=== PATIENT | female | born 1945 | race Caucasian/White ===

== ENCOUNTER 2017-01-25 12:47 | Outpatient (CLI) | payer MEDICARE ==
--- NOTE | 2017-01-29 13:49 | Mammography Report ---
DIGITAL SCREENING MAMMOGRAM: 01/25/2017 CLINICAL INDICATION: A 71-year-old, for screening. COMPARISON: No previous examinations are available for comparison. If records in your office indicate where the patient's previous mammograms were performed, we would be happy to try to obtain them for direct comparison. Otherwise, this will serve as a new baseline. TECHNIQUE: Routine CC and MLO projections were obtained of the breasts. FINDINGS: The breasts demonstrate heterogeneously dense fibroglandular parenchyma bilaterally. Coars e and punctate, typically benign calcifications are present. No suspicious masses, clustered microcal cifications, or regions of architectural distortion are identified. IMPRESSION: BENIGN FINDINGS. RECOMMENDATION: ROUTINE ANNUAL SCREENING UNLESS OTHERWISE CLINICALLY INDICATED. BIRADS CATEGORY 2-BENIGN FINDINGS. STANDARD QUALIFYING STATEMENTS 1. This examination was reviewed with the aid of Computer-Aided Detection (CAD). 2. A negative or benign imaging report should not delay biopsy if clinically suspicious findings are present. Consider surgical consultation if warranted. More than 5% of cancers are not identified by i maging. 3. Dense breasts may obscure an underlying neoplasm. JOB #: [id number] EXT JOB #:[id number]
== END 2017-01-25 12:48 | disposition home or self-care (01) ==
LOC: DI 12:47
PROVIDERS: ATTEND Internal Medicine
DX: Z12.31 Encounter for screening mammogram for malignant neoplasm of breast (principal)
CPT/HCPCS: 77067

== ENCOUNTER 2019-02-21 10:18 | Outpatient (CLI) | payer MEDICARE | END 2019-02-21 10:19 | disposition home or self-care (01) | LOC: DI 10:18 | PROVIDERS: ATTEND Internal Medicine | DX: R01.1 Cardiac murmur, unspecified (principal); I27.20 Pulmonary hypertension, unspecified | CPT/HCPCS: 93306 ==

== ENCOUNTER 2020-07-15 15:39 | Emergency (ER) | payer MEDICARE ==
[2020-07-15 15:45] VITALS: BP 178/86
[2020-07-15] MEDS ORDERED: TETANUS/DIPHTHERIA/PERTUSSIS 0.5 ML SYRINGE IM ONE (15:45)
--- NOTE | 2020-07-15 16:08 | ED Physician Documentation ---
History of Present Illness - Stated complaint Stated Complaint: RT THUMB LAC - Chief complaint Chief Complaint: Laceration - History obtained from History obtained from: Patient - History of Present Illness Timing: Today Pain level max: 3 Pain level now: 2 - Additonal information Additional information: 75 year old female with a right thumb laceration 2/2 piece of pottery today. Continues to bleed. Needs Tdap. Patient is right handed. Review of Systems Constitutional: denies: Fever, Chills GI: denies: Vomiting Skin: denies: Rash Musculoskeletal: denies: Neck pain, Back pain Neurologic: denies: Headache PD PAST MEDICAL HISTORY - Past Medical History Past Medical History: No - Allergies Allergies/Adverse Reactions: Allergies Allergy/AdvReac Type Severity Reaction Status Date / Time No Known Drug Allergies Allergy Verified 07/15/20 15:41 PD ED PE NORMAL - Vitals Vital signs reviewed: Yes - General General: Alert and oriented X 3, No acute distress - HEENT HEENT: Moist mucous membranes - Neck Neck: Supple, no meningeal sign - Derm Derm: Warm and dry - Neuro Neuro: Alert and oriented X 3 - Psych Psych: Normal mood, Normal affect PD ED PE EXPANDED - Extremities VANESSA UE/Hands Visual: 1 - laceration (R thumb - 1.5cm laceration, distal phalanx. linear. NVI.) Results - Vitals Vitals: Vital Signs - 24 hr 07/15/20 15:42 Temperature 36.5 C Heart Rate 79 Respiratory 16 Rate Blood Pressure 178/86 H O2 Saturation 99 Oxygen O2 Source Room air Procedures - Laceration (location) Right thumb Length in cm: 1.5 Wound type: Linear, Into subcut fat, Clean Neurovascular status: Sensory intact, Motor intact, Vascular intact Tendon involvement: Tendon intact Wound preparation: Irrigated copiously NS Skin layer closure: Dermabond (T ring closure system) Other: Patient tolerated well, No complications, Neurovascular intact, Tetanus booster given PD MEDICAL DECISION MAKING - ED course Complexity details: reviewed results, re-evaluated patient, considered differential, d/w patient ED course: This was closed with the t ring closure system. Warnings of infection and instructions on wound care given at bedside. Also counseled on how to minimize scarring. Patient counseled regarding signs and symptoms for which I believe and urgent re-evaluation would be necessary. Patient with good understanding of and agreement to plan and is comfortable going home at this time This document was made in part using voice recognition software. While efforts are made to proofread this document, sound alike and grammatical errors may occur. Tdap given Departure - Departure Disposition: 01 Home, Self Care Clinical Impression: Thumb laceration Qualifiers: Encounter type: initial encounter Damage to nail status: without damage Foreign body presence: without foreign body Laterality: right Qualified Code(s): S61.011A - Laceration without foreign body of right thumb without damage to nail, initial encounter Condition: Good Instructions: ED Laceration Hand Follow-Up: Abbie Leija MD [Primary Care Provider] - Within 1 week Comments: Follow-up with your doctor in about a week for wound check. Return if you worsen. Keep the wound clean. The closure system should fall off in about a week. Discharge Date/Time: 07/15/20 16:30
--- OUTSIDE RECORDS SUMMARY | 2020-07-21 01:18 | EXTERNAL MEDICAL SUMMARY RPT | Continuity of Care Document ---
:1945 Demographics Phone Unavailable Preferred Language Unknown Marital Status Unknown Samaritan Affiliation Unknown Race Unknown Ethnic Group Unknown Author Organization [facility] Address [address] [place] [address] Phone Social History date description facility [phone]
== END 2020-07-15 16:30 | disposition home or self-care (01) ==
LOC: ED 15:39
DX: S61.011A Laceration without foreign body of right thumb without damage to nail, initial encounter (principal); W26.8XXA Contact with other sharp object(s), not elsewhere classified, initial encounter; Z23 Encounter for immunization
CPT/HCPCS: 12001; 90471; 99282; 99283

== ENCOUNTER 2020-08-19 13:03 | Outpatient (CLI) | payer MEDICARE ==
--- NOTE | 2020-08-20 09:34 | Mammography Report ---
BILATERAL DIGITAL SCREENING MAMMOGRAM 3D/2D: 08/19/2020 CLINICAL: Routine screening. Comparison is made to exam dated: 01/25/2017 mammogram - [facility]. The tissue o f both breasts is heterogeneously dense. This may lower the sensitivity of mammography. No significant masses, calcifications, or other findings are seen in either breast. There has been no significant interval change. IMPRESSION: NEGATIVE There is no mammographic evidence of malignancy. A 1 year screening mammogram is recommended. This exam was interpreted at Station ID: [id number]. NOTE: For mammograms, a report in lay terms will be sent to the patient. Approximately 15% of breast malignancies will not be visualized mammographically. In the management of a palpable breast mass, a negative mammogram must not discourage biopsy of a clinically suspicious lesion. Electronically Signed By: Carrillo Graham M.D. ddp/penrad:08/19/2020 14:26:16 ACR BI-RADS Category 1: Negative 3341F PARENCHYMAL PATTERN: (D) - The breast(s) demonstrate(s) heterogeneously dense fibroglandular ben gusman. BI-RADS CATEGORY: (1) - 1 RECOMMENDATION: (ANNUAL) - Recommend routine annual screening mammography. [id number] 1 year screening LATERALITY: (B)
== END 2020-08-19 13:04 | disposition home or self-care (01) ==
LOC: DI 13:03
PROVIDERS: ATTEND Internal Medicine
DX: Z12.31 Encounter for screening mammogram for malignant neoplasm of breast (principal)

== ENCOUNTER 2021-04-19 08:00 | Outpatient (CLI) | payer MEDICARE ==
[2021-04-19 17:38] LABS: BASOPHILS # (AUTO) 0.1 10^3/uL (0.0-0.1); BASOPHILS % (AUTO) 0.7 %; EOSINOPHILS # (AUTO) 0.1 10^3/uL (0.0-0.7); EOSINOPHILS % (AUTO) 1.3 %; HCT - HEMATOCRIT 37.9 % (37.0-47.0); HGB - HEMOGLOBIN 12.1 g/dL (12.0-16.0); LYMPHOCYTES # (AUTO) 2.5 10^3/uL (1.5-3.5); LYMPHOCYTES % (AUTO) 30.4 %; MEAN CORPUSCULAR HEMOGLOBIN 30.7 pg (27.0-31.0); MEAN CORPUSCULAR HGB CONC 31.9 g/dL (32.0-36.0); MEAN CORPUSCULAR VOLUME 96.2 fL (81.0-99.0); MEAN PLATELET VOLUME 10.8 fL (7.9-10.8); MONOCYTES # (AUTO) 0.5 10^3/uL (0.0-1.0); MONOCYTES % (AUTO) 6.5 %; NEUTROPHILS % (AUTO) 60.7 %; PLT - PLATELET COUNT 262 10^3/uL (130-450); RED BLOOD COUNT 3.94 10^6/uL (4.20-5.40); RED CELL DISTRIBUTION WIDTH 13.5 % (12.0-15.0); WHITE BLOOD COUNT 8.3 x10^3/uL (4.8-10.8)
[2021-04-19 17:44] LABS: CREATININE 0.9 mg/dL (0.4-1.0); POTASSIUM 3.8 mmol/L (3.5-5.0)
== END 2021-04-19 23:59 ==
LOC: LAB.R 08:00
PROVIDERS: ATTEND Internal Medicine
DX: Z01.812 Encounter for preprocedural laboratory examination (principal); H40.9 Unspecified glaucoma; E78.5 Hyperlipidemia, unspecified; I10 Essential (primary) hypertension
CPT/HCPCS: 80048; 85025

== ENCOUNTER 2021-04-27 08:00 | Outpatient (CLI) | payer MEDICARE | END 2021-04-27 23:59 | LOC: LAB.R 08:00 | PROVIDERS: ATTEND Internal Medicine | DX: Z01.812 Encounter for preprocedural laboratory examination (principal); Z20.822 Contact with and (suspected) exposure to COVID-19 ==

== ENCOUNTER 2021-09-26 16:15 | Outpatient (CLI) | payer MEDICARE ==
[2021-09-26 16:52] LABS: ALBUMIN/GLOBULIN RATIO 1.1 (1.0-2.2); ALKALINE PHOSPHATASE 51 IU/L (42-121); ALT ALANINE AMINOTRANSFERASE 16 IU/L (10-60); AST ASPARTATE AMINOTRANSFERASE 24 IU/L (10-42); BILIRUBIN,TOTAL 0.5 mg/dL (0.2-1.0); BUN - BLOOD UREA NITROGEN 27 mg/dL (6-20); CALCIUM 9.9 mg/dL (8.5-10.3); CARBON DIOXIDE - CO2 28 mmol/L (21-32); CHLORIDE 100 mmol/L (101-111); CHOL/HDL RATIO 4.3 (<4.4); CHOLESTEROL 310 mg/dL; CREATININE 0.9 mg/dL (0.4-1.0); GFR - MDRD 61 (>89); GLUCOSE 87 mg/dL (70-100); HDL CHOLESTEROL 72 mg/dL; LDL CHOLESTEROL,CALCULATED 213 mg/dL; POTASSIUM 3.5 mmol/L (3.5-5.0); SODIUM 136 mmol/L (135-145); TOTAL PROTEIN 7.8 g/dL (6.7-8.2); TRIGLYCERIDES 127 mg/dL; VLDL CHOLESTEROL 25 mg/dL
[2021-09-26 17:01] LABS: THYROID STIMULATING HORMONE 1.69 uIU/mL (0.34-5.60)
== END 2021-09-26 16:16 | disposition home or self-care (01) ==
LOC: LAB 16:15
PROVIDERS: ATTEND Internal Medicine
DX: Z00.00 Encounter for general adult medical examination without abnormal findings (principal); M54.9 Dorsalgia, unspecified; H40.9 Unspecified glaucoma; E78.5 Hyperlipidemia, unspecified; I10 Essential (primary) hypertension; M79.605 Pain in left leg; M79.604 Pain in right leg; C80.1 Malignant (primary) neoplasm, unspecified
CPT/HCPCS: 36415; 80053; 80061; 82306; 82607; 83721; 84443; 85025

== ENCOUNTER 2021-12-22 13:49 | Outpatient (CLI) | payer MEDICARE ==
--- NOTE | 2021-12-22 15:48 | MRI Report ---
PROCEDURE: Lumbar Spine W/O INDICATIONS: GROIN PAIN, LEFT LEG PAIN TECHNIQUE: Noncontrast sagittal T1 spin echo and T2 fast echo, sagittal STIR, axial T1 and T2 fast spin echo thr ough the lumbar spine. In cases with scoliosis, additional coronal T2 fast spin echo may be performe d. COMPARISON: None. FINDINGS: Image quality: Excellent. Alignment and Curvature: There is grade I L3 on L4 and L4 on L5 anterolisthesis. Bone Marrow: Marrow is of normal overall signal. No acute vertebral body compression fractures. Spinal Cord: Conus medullaris terminates at the T12/L1 level. Visualized cord demonstrates normal s ignal and size. Paraspinous Soft Tissues: No paravertebral masses. T12-L1: Moderate disc desiccation and height loss. No canal stenosis. No neural foraminal stenosis. L1-L2: Mild disc desiccation and height loss. Broad based disc bulge. Moderate facet and ligamentu m flavum hypertrophy. No canal stenosis. No foraminal narrowing. L2-L3: Mild disc desiccation and height loss. Broad based disc bulge. Severe facet ligamentum flav um hypertrophy. No canal stenosis. Mild bilateral neural foraminal stenosis. There is a small focal h igh intensity zone present. L3-L4: Moderate disc desiccation and height loss. Anterolisthesis. Severe facet and ligamentum flav um hypertrophy. Severe canal stenosis. Moderate bilateral foraminal stenosis. L4-L5: Severe disc desiccation and height loss. Anterolisthesis. Severe facet and ligamentum flavum hypertrophy. Moderate canal stenosis. Moderate right and mild left foraminal narrowing. L5-S1: Mild disc desiccation and height loss. Moderate facet sclerosis. No canal stenosis. No leatha inal stenosis. IMPRESSION: 1. Disc desiccation and height loss throughout the lumbar spine most severe at L4-5. 2. Anterolisthesis at L3-4 and L4-5 in combination with severe facet and ligamentum flavum hypertroph y result in severe canal stenosis at L3-4 and moderate canal stenosis at L4-5. 3. Moderate bilateral foraminal stenosis is present at L3-4 and moderate right foraminal stenosis at L4-5. 4. 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 Reviewed by: Juana Sarmiento MD on 12/22/2021 3:46 PM PDT Approved by: Juana Sarmiento MD on 12/22/2021 3:46 PM PDT Station ID: [id number]
== END 2021-12-22 13:50 | disposition home or self-care (01) ==
LOC: DI 13:49
PROVIDERS: ATTEND Internal Medicine
DX: M51.35 Other intervertebral disc degeneration, thoracolumbar region (principal); M51.36 Other intervertebral disc degeneration, lumbar region; M47.816 Spondylosis without myelopathy or radiculopathy, lumbar region; M48.061 Spinal stenosis, lumbar region without neurogenic claudication; M43.16 Spondylolisthesis, lumbar region; M51.37 Other intervertebral disc degeneration, lumbosacral region; M47.817 Spondylosis without myelopathy or radiculopathy, lumbosacral region

== ENCOUNTER 2022-08-04 15:15 | Outpatient (CLI) | payer MEDICARE ==
--- NOTE | 2022-08-04 16:58 | XRAY Report ---
PROCEDURE: Hip w/Pelvis 2-3V LT INDICATIONS: HIP PAIN TECHNIQUE: AP pelvis with lateral view(s) of the left hip(s). COMPARISON: None. FINDINGS: Bones: No fractures or dislocations. No suspicious bony lesions. Moderate multiple osteophytes, d efinite narrowing of joint space, small pseudocystic areas with sclerotic rossi and possible deformit y of bone contour. Soft tissues: No suspicious soft tissue calcifications or masses. IMPRESSION: No acute bony abnormality. Kellgren-Surinder scale of osteoarthritis: Grade 3: moderate osteoarthritis. Reviewed by: Shawn Ordonez on 08/04/2022 4:57 PM PDT Approved by: Shawn Ordonez on 08/04/2022 4:57 PM PDT Station ID: [id number]
== END 2022-08-04 15:16 | disposition home or self-care (01) ==
LOC: DI 15:15
PROVIDERS: ATTEND Internal Medicine
DX: M16.12 Unilateral primary osteoarthritis, left hip (principal)

== ENCOUNTER 2022-11-14 11:16 | Outpatient (CLI) | payer MEDICARE ==
--- NOTE | 2022-11-15 12:05 | Mammography Report ---
BILATERAL DIGITAL SCREENING MAMMOGRAM 3D/2D: 11/14/2022 CLINICAL: Routine screening. Comparison is made to exams dated: 12/02/2021 mammogram, 08/19/2020 mammogram, and 01/25/2017 mammogram - [facility]. Both breasts are heterogeneously dense, which may obscure small masses (category c / 51-75% glandular tissue). No significant masses, calcifications, or other findings are seen in either breast. There has been no significant interval change. IMPRESSION: NEGATIVE There is no mammographic evidence of malignancy. A 1 year screening mammogram is recommended. Based on the Tyrer Cuzick model (a risk assessment model) the patients lifetime risk is 2.9% and her 10 year risk is 0.0%. According to the ACR, ACS, and NCCN guidelines, an annual breast MRI exam chi g with mammogram is recommended if the patients lifetime risk is 20% or greater. This exam was interpreted at Station ID: [id number]. NOTE: For mammograms, a report in lay terms will be sent to the patient. Approximately 15% of breast malignancies will not be visualized mammographically. In the management of a palpable breast mass, a negative mammogram must not discourage biopsy of a clinically suspicious lesion. Electronically Signed By: Neeraj lindsey/bunny:11/14/2022 14:05:24 letter sent: No_Letter ACR BI-RADS Category 1: Negative 3341F PARENCHYMAL PATTERN: (D) - The breast(s) demonstrate(s) heterogeneously dense fibroglandular ben gusman. BI-RADS CATEGORY: (1) - 1 Mammogram [id number] 1 year screening LATERALITY: (B)
== END 2022-11-14 11:17 | disposition home or self-care (01) ==
LOC: DI 11:16
PROVIDERS: ATTEND Internal Medicine
DX: Z12.31 Encounter for screening mammogram for malignant neoplasm of breast (principal)

== ENCOUNTER 2023-06-07 14:36 | Outpatient (CLI) | payer MEDICARE ==
[2023-06-07 15:49] LABS: BUN - BLOOD UREA NITROGEN 37 mg/dL (6-20); CALCIUM 9.6 mg/dL (8.5-10.3); CARBON DIOXIDE - CO2 28 mmol/L (21-32); CHLORIDE 100 mmol/L (101-111); CREATININE 1.1 mg/dL (0.6-1.3); GFR - MDRD 48 (>89); GLUCOSE 151 mg/dL (74-104); POTASSIUM 4.3 mmol/L (3.5-4.5); SODIUM 135 mmol/L (135-145)
[2023-06-08 08:19] LABS: HDL CHOLESTEROL 59 mg/dL
[2023-06-08 08:25] LABS: CHOL/HDL RATIO 4.5 (<4.4); CHOLESTEROL 266 mg/dL; LDL CHOLESTEROL,CALCULATED 158 mg/dL; LDL/HDL RATIO 2.7 (<4.4); TRIGLYCERIDES 244 mg/dL (48-352); VLDL CHOLESTEROL 49 mg/dL
== END 2023-06-07 14:37 | disposition home or self-care (01) ==
LOC: LAB 14:36
PROVIDERS: ATTEND Nurse Practitioner Gerontology
DX: I34.1 Nonrheumatic mitral (valve) prolapse (principal)
CPT/HCPCS: 36415; 80048; 80061; 83721; 83880

== ENCOUNTER 2023-06-18 10:56 | Outpatient (CLI) | payer MEDICARE | END 2023-06-18 23:59 | disposition critical access hospital (66) | LOC: EMS 10:56 | DX: K92.1 Melena (principal); R19.7 Diarrhea, unspecified; R11.0 Nausea; R61 Generalized hyperhidrosis | CPT/HCPCS: A0425; A0429 ==

== ENCOUNTER 2023-06-18 11:06 | Inpatient (IN) | payer MEDICARE ==
--- NOTE | 2023-06-18 11:34 | ED Physician Documentation ---
PD HPI GI BLEED - Stated complaint Stated Complaint: SYNCOPE/DIARRHEA - Chief complaint Chief Complaint: General - History obtained from History obtained from: Patient - History of Present Illness Timing - onset: Today Timing - details: Abrupt onset (sat on toilet for BM with some cramping lower abd pain, had a large loose stool that was noted to be black/dark colored, then more BMs with rust/brick coloring. Bad odor. Wallace lightheaded with near syncope.), Still present Associated symptoms: Maroon stool, Black/tarry stool Contributing factors: Aspirin use (baby aspirin daily for usp use.), NSAID use (clelebrex for past 5 weeks taken without food. No PPIs.), Other (Had left hip replacement end april without problekms. Healing well without nfection.). No: Sick contact, Bad food Similar symptoms before: Has not had sx before Recently seen: Clinic (seen post op check without problems. 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: None : None HEENT: Dental implants Psych: None Musculoskeletal: None Derm: None - Past Surgical History Past Surgical History: Yes Ortho: Hip replacement - Present Medications Home Medications: Ambulatory Orders Medication Instructions Recorded Confirmed Aspirin [Vazalore] 1 cap PO DAILY 06/18/23 06/18/23 Benazepril HCl 1 tab PO DAILY 06/18/23 06/18/23 Celecoxib [CeleBREX] 200 mg PO DAILY 06/18/23 06/18/23 hydroCHLOROthiazide [Hydrodiuril] 1 cap PO DAILY 06/18/23 06/18/23 - Allergies Allergies/Adverse Reactions: Allergies Allergy/AdvReac Type Severity Reaction Status Date / Time oxycodone AdvReac Anxiety Verified 06/18/23 11:19 - Social History Does the pt smoke?: No Smoking Status: Never smoker Does the pt drink ETOH?: Yes Does the pt have substance abuse?: No - Immunizations Immunizations are current?: Yes - POLST Patient has POLST: No PD ED PE NORMAL - Vitals Vital signs reviewed: Yes (initially hypotensive which improved with IV fluids and remained normal) - General General: Alert and oriented X 3, No acute distress, Well developed/nourished - Neck Neck: Supple, no meningeal sign, No adenopathy - Cardiac Cardiac: RRR, No murmur - Respiratory Respiratory: No respiratory distress, Clear bilaterally - Abdomen Abdomen: Normal bowel sounds, Soft, Non tender, Non distended - Female Female : Deferred - Rectal Rectal: Other (soft stool in vault that was brick red color and obviously blood without stool noted per se. ) - Back Back: No CVA TTP - Derm Derm: Warm and dry. No: Normal color (mild pallor) Results - Vitals Vitals: Vital Signs - 24 hr 06/18/23 06/18/23 06/18/23 11:08 12:00 14:44 Temperature Heart Rate 77 75 85 Heart Rate [ Monitoring electrodes] Respiratory 16 18 Rate Blood Pressure 124/72 106/94 H 135/72 H Blood Pressure [Right Brachial artery] O2 Saturation 100 99 100 06/18/23 06/18/23 06/18/23 14:51 15:12 16:30 Temperature 36.7 C 36.5 C 36.7 C Heart Rate Heart Rate [ 81 93 91 Monitoring electrodes] Respiratory 16 16 17 Rate Blood Pressure Blood Pressure 128/68 139/79 H 127/69 [Right Brachial artery] O2 Saturation 100 100 92 Oxygen O2 Source Room air - Labs Labs: Microbiology 06/18/23 12:11 Occult Blood - Final Stool - Loose Consistency Laboratory Tests 06/18/23 06/18/23 06/18/23 12:37 12:37 12:37 WBC 10.3 RBC 2.38 L Hgb 7.2 L Hct 23.0 L MCV 96.6 MCH 30.3 MCHC 31.3 L RDW 14.4 Plt Count 222 MPV 9.4 Neut # (Auto) 9.2 H Lymph # (Auto) 0.8 L [place] # (Auto) 0.3 Eos # (Auto) 0.0 Baso # (Auto) 0.1 Absolute Nucleated RBC 0.00 Nucleated RBC % 0.0 Sodium 139 Potassium 4.3 Chloride 109 Carbon Dioxide 24 Anion Gap 6.0 BUN 56 H Creatinine 1.0 Estimated GFR (MDRD) 53 L Glucose 117 H Calcium 8.9 Magnesium 1.6 L Total Bilirubin 0.3 AST 21 ALT 21 Alkaline Phosphatase 46 Total Protein 6.0 L Albumin 3.3 Globulin 2.7 Albumin/Globulin Ratio 1.2 Lipase 33 Blood Type A POSITIVE Blood Type Recheck Antibody Screen NEGATIVE Crossmatch IS Only See Detail 06/18/23 12:53 WBC RBC Hgb Hct MCV MCH MCHC RDW Plt Count MPV Neut # (Auto) Lymph # (Auto) [place] # (Auto) Eos # (Auto) Baso # (Auto) Absolute Nucleated RBC Nucleated RBC % Sodium Potassium Chloride Carbon Dioxide Anion Gap BUN Creatinine Estimated GFR (MDRD) Glucose Calcium Magnesium Total Bilirubin AST ALT Alkaline Phosphatase Total Protein Albumin Globulin Albumin/Globulin Ratio Lipase Blood Type Blood Type Recheck A POSITIVE Antibody Screen Crossmatch IS Only PD Medical Decision Making - ED course Complexity details: reviewed results, re-evaluated patient (feeling better with IV fluids and will give unit RBCs given drop in blood count and presumed ongoing GI bleeding. ), considered differential (acute GI bleeding of melena then brick colored stool, that is obviously blood/guiac positive (sent to lab). Had transient hypotension that is better with IV fluids. Conversant and alert. No abd tenderness on exam. ), d/w patient ED course: abrupt GI bleeding with near syncope and apparent drop in Hct from recent 27 to now 23. Transient hypotension that improved with IV fluids. 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 No nausea nor vomiting. No pain with eating. Has been taking Cleebrex and ASA post hip replacemetn 5 weeks ago. No prior ulcers/GI bleeding. Talked with Surgery that they are available if needed and to see what prefers. - Critical Care Time(min): 45 Comments: actue GI bleeding with hypotension, requiring IV fluids and blood transfusion. Time Includes: Direct patient care, Reassess patient, Document care, Coordinate care, Medical consult Data interpretation: Labs, Pulse ox Departure - Departure Disposition: [facility] DC/Xfer Clinical Impression: Acute upper GI bleed, Transient hypotension, Anemia due to blood loss, acute, NSAID induced gastritis, Near syncope Condition: Stable Record reviewed to determine appropriate education?: Yes Discharge Date/Time: 06/18/23 15:59
[2023-06-18] MEDS: PANTOPRAZOLE 40 MG VIAL IVP STA (12:44)
[2023-06-18] MEDS: FAMOTIDINE 20 MG/2 ML VIAL IVP STA (12:44)
[2023-06-18 12:45] LABS: BASOPHILS # (AUTO) 0.1 10^3/uL (0.0-0.1); BASOPHILS % (AUTO) 0.6 %; EOSINOPHILS % (AUTO) 0.1 %; HGB - HEMOGLOBIN 7.2 g/dL (12.0-16.0); LYMPHOCYTES # (AUTO) 0.8 10^3/uL (1.5-3.5); LYMPHOCYTES % (AUTO) 7.3 %; MEAN CORPUSCULAR HEMOGLOBIN 30.3 pg (27.0-31.0); MEAN CORPUSCULAR HGB CONC 31.3 g/dL (32.0-36.0); MEAN CORPUSCULAR VOLUME 96.6 fL (81.0-99.0); MEAN PLATELET VOLUME 9.4 fL (7.9-10.8); MONOCYTES # (AUTO) 0.3 10^3/uL (0.0-1.0); MONOCYTES % (AUTO) 2.6 %; NEUTROPHILS # (AUTO) 9.2 10^3/uL (1.5-6.6); PLT - PLATELET COUNT 222 10^3/uL (130-450); RED BLOOD COUNT 2.38 10^6/uL (4.20-5.40); RED CELL DISTRIBUTION WIDTH 14.4 % (12.0-15.0); WHITE BLOOD COUNT 10.3 x10^3/uL (4.8-10.8)
[2023-06-18] MEDS: SODIUM CHLORIDE 0.9% 1,000 ML IV STA ×2 (12:47→13:16)
[2023-06-18 13:00] LABS: ALBUMIN 3.3 g/dL (3.2-5.5); ALBUMIN/GLOBULIN RATIO 1.2 (1.0-2.2); BILIRUBIN,TOTAL 0.3 mg/dL (0.2-1.0); CALCIUM 8.9 mg/dL (8.5-10.3); MAGNESIUM 1.6 mg/dL (1.7-2.3); POTASSIUM 4.3 mmol/L (3.5-4.5)
[2023-06-18] MEDS ORDERED: SODIUM CHLORIDE FLUSH 0.9% 10 ML SYRINGE IVP PRN (14:08)
--- NOTE | 2023-06-18 15:36 | CONSULTATION NOTE ---
Referring Provider Name of Referring Provider:: Dr. Louie Magallanes Consult Date: 06/18/23 Chief Complaint - Chief Complaint Chief Complaint: New onset anemia in a 77-year-old female on Celebrex and aspirin without a History of Present Illness - Admitted From Admitted From:: ED - History Obtained From Records Reviewed: Yes. History obtained from: Primarily the patient and chart review Exam Limitations: None. - History of Present Illness HPI Comment/Other: This is a delightful 77-year-old female evaluated in Room 7 of [facility]'s emergency department at the request of Dr. Louie Magallanes to help identify the cause of her anemia. She recently had a left hip replacement and was placed on Celebrex as well as aspirin. She was not placed on any proton pump inhibitors. She has not had similar symptoms in the past. She denies melena, hematochezia, hematemesis but she did have a near syncopal episode this morning that prompted her to come to the emergency department. Upon evaluation her hemoglobin was found to be in the low 7's. Please note that the patient was evaluated in the presence of her daughter and 2 of her close friends and that she gave me permission to speak with them and speak freely in front of them. She also asked that I speak with them about the postoperative results after the procedure. 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 : reports: None HEENT: reports: Dental implants Psych: reports: None Musculoskeletal: reports: None Derm: reports: None - Past Surgical History Ortho: reports: Hip replacement - POLST Patient has POLST: No Meds/Allgy - Home Medications Home Medications: Ambulatory Orders Medication Instructions Recorded Confirmed Aspirin [Vazalore] 1 cap PO DAILY 06/18/23 06/18/23 Benazepril HCl 1 tab PO DAILY 06/18/23 06/18/23 Celecoxib [CeleBREX] 200 mg PO DAILY 06/18/23 06/18/23 hydroCHLOROthiazide [Hydrodiuril] 1 cap PO DAILY 06/18/23 06/18/23 - Allergies Allergies/Adverse Reactions: Allergies Allergy/AdvReac Type Severity Reaction Status Date / Time oxycodone AdvReac Anxiety Verified 06/18/23 11:19 Review of Systems - Constitutional Constitutional: denies: Fatigue, Fever, Chills - Eyes Eyes: denies: Pain - Ears, Nose & Throat Ears, Nose & Throat: denies: Ear pain - Cardiovascular Cariovascular: denies: Irregular heart rate, Palpitations, Chest pain - Respiratory Respiratory: denies: Cough - Gastrointestinal Gastrointestinal: denies: Abdominal pain, Constipation, Diarrhea, Change in bowel habits, Nausea, Vomiting, Jairo blood emesis - Integumentary Integumentary: denies: Rash - Neurological Neurological: denies: General weakness, Focal weakness - Psychiatric Psychiatric: denies: Depression, Anxiety Exam - Vital Signs Reviewed Vital Signs: Yes Vital Signs: Vital Signs x48h Temp Pulse Pulse Resp BP BP Pulse Ox 06/18/23 15:12 36.5 C 93 16 139/79 H 100 06/18/23 14:51 36.7 C 81 16 128/68 100 06/18/23 14:44 85 18 135/72 H 100 06/18/23 12:00 75 16 106/94 H 99 06/18/23 11:08 77 124/72 100 - Physical Exam General Appearance: positive: No acute distress, Alert Eyes Bilateral: positive: No lid inflammation, Conjunctivae nml, No scleral icterus Neck: positive: Trachea midline Respiratory: positive: Chest non-tender, No respiratory distress, Breath sounds nml Cardiovascular: positive: Regular rate & rhythm, Systolic murmur. negative: Tachycardia Abdomen: positive: Non-tender, No organomegaly, Nml bowel sounds, No distention. negative: Guarding, Rebound Skin: positive: Warm, Dry, Other (Slight pallor.) Extremities: positive: Non-tender, Nml appearance Neurologic/Psychiatric: positive: Oriented x3, Motor nml, Sensation nml, Mood/affect nml Conclusion and Plan - Lab Results Microbiology Results 06/18/23 12:11 Stool - Loose Consistency Occult Blood - Final Laboratory Results 06/18/23 12:53: Blood Type Recheck A POSITIVE 06/18/23 12:37: Sodium 139, Potassium 4.3, Chloride 109, Carbon Dioxide 24, Anion Gap 6.0, BUN 56 H, Creatinine 1.0, Estimated GFR (MDRD) 53 L, Glucose 117 H, Calcium 8.9, Magnesium 1.6 L, Total Bilirubin 0.3, AST 21, ALT 21, Alkaline Phosphatase 46, Total Protein 6.0 L, Albumin 3.3, Globulin 2.7, Albumin/Globulin Ratio 1.2, Lipase 33 06/18/23 12:37: WBC 10.3, RBC 2.38 L, Hgb 7.2 L, Hct 23.0 L, MCV 96.6, MCH 30.3, MCHC 31.3 L, RDW 14.4, Plt Count 222, MPV 9.4, Neut # (Auto) 9.2 H, Lymph # (Auto) 0.8 L, [place] # (Auto) 0.3, Eos # (Auto) 0.0, Baso # (Auto) 0.1, Absolute Nucleated RBC 0.00, Nucleated RBC % 0.0 06/18/23 12:37: Blood Type A POSITIVE, Antibody Screen NEGATIVE, Crossmatch IS Only See Detail - Diagnosis Diagnosis: Anemia likely secondary to use of Celebrex and aspirin in a po stoperative orthopedic 77-year-old female without the protective effects of her proton pump inhibitor - Consultation Note Consultation Note: The gastrointestinal bleeding rate in orthopedic patient's following surgery is approximately 2% but once the patient is taking Celebrex and aspirin this number can rise to 8%. I believe this patient likely has an upper GI source for her anemia. She does not consume alcohol and as such varices are highly unlikely. - Plan Plan: Esophagogastroduodenoscopy with possible biopsies. The indication, procedure, alternatives including the procedure, and possible complications including but not limited to perforation requiring operative repair, bleeding with all of its risks, and were fully explained to the patient and all the patient in the room and all questions were answered. Verbal and written consent was obtained. I asked if there is any way I have asked him to let me know if there is any way we can make her stay at [facility] more comfortable to please let us know. I said if there were additional questions or concerns please contact me as well. They stated that they would. I wish to thank Dr. Magallanes very much for the opportunity to participate in this patient's care. CPT 55131
[2023-06-18] MEDS ORDERED: PROPOFOL 200 MG/20 ML VIAL IVP ONE (15:54)
[2023-06-18] MEDS ORDERED: LIDOCAINE-MPF 2% 5 ML VIAL ONE (15:54)
--- NOTE | 2023-06-18 15:59 | ANESTHESIA ---
Pre-Anesthesia VS, & Labs - Diagnosis Diagnosis Anemia likely secondary to use of Celebrex and aspirin in a postoperative orthopedic 77-year- old female without the protective effects of her proton pump inhibitor - Procedure EGD Vital Signs: Temp Pulse Resp BP Pulse Ox O2 Flow Rate 36.5 C 93 16 139/79 H 100 06/18/23 15:12 06/18/23 15:12 06/18/23 15:12 06/18/23 15:12 06/18/23 15:12 Height: 5 ft 4 in Weight (kg): 71 kg Body Mass Index: 26.9 BMI Classification: Overweight - NPO >8 hours - Is Patient ?: Not Applicable - Lab Results Current Lab Results: Laboratory Tests 06/18/23 12:53: Blood Type Recheck A POSITIVE 06/18/23 12:37: Sodium 139, Potassium 4.3, Chloride 109, Carbon Dioxide 24, Anion Gap 6.0, BUN 56 H, Creatinine 1.0, Estimated GFR (MDRD) 53 L, Glucose 117 H, Calcium 8.9, Magnesium 1.6 L, Total Bilirubin 0.3, AST 21, ALT 21, Alkaline Phosphatase 46, Total Protein 6.0 L, Albumin 3.3, Globulin 2.7, Albumin/Globulin Ratio 1.2, Lipase 33 06/18/23 12:37: WBC 10.3, RBC 2.38 L, Hgb 7.2 L, Hct 23.0 L, MCV 96.6, MCH 30.3, MCHC 31.3 L, RDW 14.4, Plt Count 222, MPV 9.4, Neut # (Auto) 9.2 H, Lymph # (Auto) 0.8 L, Mckenzie # (Auto) 0.3, Eos # (Auto) 0.0, Baso # (Auto) 0.1, Absolute Nucleated RBC 0.00, Nucleated RBC % 0.0 06/18/23 12:37: Blood Type A POSITIVE, Antibody Screen NEGATIVE, Crossmatch IS Only See Detail Fish Bones: 06/18/23 12:37 06/18/23 12:37 Home Medications and Allergies Home Medications: Ambulatory Orders Aspirin [Vazalore] 1 cap PO DAILY 06/18/23 Benazepril HCl 1 tab PO DAILY 06/18/23 Celecoxib [CeleBREX] 200 mg PO DAILY 06/18/23 hydroCHLOROthiazide [Hydrodiuril] 1 cap PO DAILY 06/18/23 Active Medications Sodium Chloride (Normal Saline 0.9%) 1,000 mls @ 250 mls/hr IV .Q4H STA Stop: 06/18/23 17:06 Last Admin: 06/18/23 13:16 Dose: 250 mls/hr Pantoprazole Sodium 80 mg/ (Sodium Chloride) 100 mls @ 10 mls/hr IV .Q10H YANDY Sodium Chloride (Sodium Chloride Flush 0.9% 10 Ml Syringe) 10 ml IVP PRN PRN PRN Reason: NEEDED PER PROVIDER ORDERS Sodium Chloride (Sodium Chloride Flush 0.9% 10 Ml Syringe) 10 ml IVP 0100,0900,1700 YANDY Aspirin [Vazalore] 1 cap PO DAILY 06/18/23 Benazepril HCl 1 tab PO DAILY 06/18/23 Celecoxib [CeleBREX] 200 mg PO DAILY 06/18/23 hydroCHLOROthiazide [Hydrodiuril] 1 cap PO DAILY 06/18/23 Allergies/Adverse Reactions: Allergies Allergy/AdvReac Type Severity Reaction Status Date / Time oxycodone AdvReac Anxiety Verified 06/18/23 11:19 Anes History & Medical History - Anesthetic History Anesthesia Complications: reports: No previous complications Family history of Anesthesia Complications: Denies Family history of Malignant Hyperthermia: Denies - Medical History Cardiovascular: reports: Murmur Pulmonary: reports: None Gastrointestinal: reports: None Urinary: reports: None Musculoskeletal: reports: None Endocrine/Autoimmune: reports: None Blood Disorders: reports: None Skin: reports: None Smoking Status: Never smoker - Surgical History Orthopedic: reports: Hip replacement Exam General: Alert, Oriented x3, Cooperative Dental: WNL Mouth Openin Fingerbreadth Neck Mobility: Normal Mallampati classification: II Thyromental Distance: 4-6 cm Respiratory: Lungs clear Cardiovascular: Regular rate Plan Anesthesia Type: General, Total IV Consent for Procedure(s) Verified and Reviewed: Yes Code Status: Attempt Resuscitation ASA classification: 2-Mild systemic disease Is this case an emergency?: No
[2023-06-18] MEDS ORDERED: EPINEPHrine 1 MG/ML AMP ONE (16:16)
[2023-06-18] MEDS: EPINEPHrine 1 MG/ML AMP IJ ONE (16:32)
--- NOTE | 2023-06-18 16:51 | ANESTHESIA POST OP EVALUATION ---
Anesthesia Post Eval - Post Anesthesia Eval Vitals: Last Vital Signs Temp 36.5 C 06/18/23 15:12 Pulse 93 06/18/23 15:12 Resp 16 06/18/23 15:12 BP 139/79 H 06/18/23 15:12 Pulse Ox 100 06/18/23 15:12 O2 Flow Rate CV Function Including HR & BP: Stable Pain Control: Satisfactory Nausea & Vomiting: Negative Mental Status: Baseline Respiratory Status: Airway Patent Hydration Status: Satisfactory Anesthesia Complications: None
[2023-06-18] MEDS: SUCRALFATE 1 GM/10 ML UDC PO STA ×2 (17:05→17:32)
[2023-06-18] MEDS: PANTOPRAZOLE 80 MG in SODIUM CHLORIDE 0.9% 100ML 100 ML IV SCH (17:29)
[2023-06-18] MEDS: SODIUM CHLORIDE FLUSH 0.9% 10 ML SYRINGE IVP SCH (17:46)
[2023-06-18 19:51] LABS: HCT - HEMATOCRIT 26.6 % (37.0-47.0); HGB - HEMOGLOBIN 8.5 g/dL (12.0-16.0)
[2023-06-18 22:45] LABS: HCT - HEMATOCRIT 25.1 % (37.0-47.0)
--- NOTE | 2023-06-18 23:31 | HISTORY & PHYSICAL EXAMINATION ---
Chief Complaint - Chief Complaint Chief Complaint: Syncope/Diarrhea History of Present Illness - Admitted From Admitted From:: Emergency Room - History Obtained From Records Reviewed: Yes History obtained from: Patient and Dr. Crespo - History of Present Illness HPI Comment/Other: Chinyere Shelton is a 77-year-old woman who presented to the emergency room after having a large black stool. When she arose from the toilet, she had a near syncopal event. She reports she had a hip replacement at the end of April and has been on Celebrex since that time. Patient was brought to the emergency room for further evaluation and laboratory workup revealed a hemoglobin of 7.2 and hematocrit of 23. History - Past Medical History Cardiovascular: reports: Murmur Respiratory: reports: None Neuro: reports: None Endocrine/Autoimmune: reports: None GI: reports: None COTTON STOMPER: reports: None : reports: None HEENT: reports: Dental implants Psych: reports: None Musculoskeletal: reports: None Derm: reports: None - Past Surgical History Ortho: reports: Hip replacement HEENT: reports: Tonsil/Adenoidectomy - POLST Patient has POLST: No Meds/Allgy - Home Medications Home Medications: Ambulatory Orders Medication Instructions Recorded Confirmed Aspirin [Vazalore] 1 cap PO DAILY 06/18/23 06/18/23 Benazepril HCl 1 tab PO DAILY 06/18/23 06/18/23 Celecoxib [CeleBREX] 200 mg PO DAILY 06/18/23 06/18/23 hydroCHLOROthiazide [Hydrodiuril] 1 cap PO DAILY 06/18/23 06/18/23 - Allergies Allergies/Adverse Reactions: Allergies Allergy/AdvReac Type Severity Reaction Status Date / Time oxycodone AdvReac Anxiety Verified 06/18/23 11:19 Review of Systems - Constitutional Constitutional: reports: Fatigue, Weakness - Gastrointestinal Gastrointestinal: reports: Abdominal pain, Diarrhea, Black stools Exam - Vital Signs Vital Signs: Vital Signs x48h Temp Pulse Resp BP Pulse Ox 06/18/23 23:20 36.6 C 84 16 114/61 98 06/18/23 19:58 36.6 C 88 20 121/67 97 06/18/23 19:05 36.6 C 80 16 130/67 98 06/18/23 18:05 36.5 C 79 17 112/66 100 06/18/23 17:39 36.3 C L 81 17 116/69 98 06/18/23 17:35 36.3 C L 80 17 116/69 98 06/18/23 17:00 36.6 C 86 17 137/71 H 100 06/18/23 16:30 36.7 C 91 17 127/69 92 - Physical Exam General Appearance: positive: No acute distress, Alert Eyes Bilateral: positive: Normal inspection, PERRL, Conjunctivae nml ENT: positive: ENT inspection nml Neck: positive: No JVD, Trachea midline, Thyromegaly Respiratory: positive: Other ( Good air exchange in all lung reynolds no wheezing no crackles.) Cardiovascular: positive: Regular rate & rhythm, No murmur Abdomen: positive: Non-tender, No organomegaly Extremities: positive: No pedal edema Neurologic/Psychiatric: positive: Oriented x3, CN's nml (2-12), Motor nml Conclusion/Plan - Problem List (1) Gastrointestinal hemorrhage Conclusion/Plan: Ms. Khanna was evaluated by Dr. Abreu and underwent a endoscopy procedure endoscopy seizure revealed a large ulcer that was not actively bleeding. Plan is for patient to continue on a Protonix drip for 72 hours and then be transitionws to p.o. Protonix and sucralfate. Continue to monitor hemoglobin and hematocrit and transfuse for evidence of active bleeding or a hemoglobin less than 7. Recommend treatment with sucralfate for 8 weeks and Protonix 40 mg twice daily for 12 weeks. Patient should be reevaluated by Dr. Abreu in approximately 12 weeks. (2) Anemia Anemia most likely secondary to GI hemorrhage.Continue to monitor as needed. DVT prophylaxis with SCDs. - Lab Results Fish Bones: 06/18/23 22:38 06/18/23 12:37
[2023-06-19 01:12] LABS: BASOPHILS # (AUTO) 0.1 10^3/uL (0.0-0.1); BASOPHILS % (AUTO) 0.6 %; EOSINOPHILS # (AUTO) 0.3 10^3/uL (0.0-0.7); EOSINOPHILS % (AUTO) 2.8 %; HCT - HEMATOCRIT 24.2 % (37.0-47.0); HGB - HEMOGLOBIN 7.8 g/dL (12.0-16.0); LYMPHOCYTES # (AUTO) 1.8 10^3/uL (1.5-3.5); LYMPHOCYTES % (AUTO) 17.5 %; MEAN CORPUSCULAR HEMOGLOBIN 30.4 pg (27.0-31.0); MEAN CORPUSCULAR HGB CONC 32.2 g/dL (32.0-36.0); MEAN CORPUSCULAR VOLUME 94.2 fL (81.0-99.0); MEAN PLATELET VOLUME 9.9 fL (7.9-10.8); MONOCYTES # (AUTO) 0.7 10^3/uL (0.0-1.0); MONOCYTES % (AUTO) 7.1 %; NEUTROPHILS # (AUTO) 7.2 10^3/uL (1.5-6.6); NEUTROPHILS % (AUTO) 71.6 %; PLT - PLATELET COUNT 210 10^3/uL (130-450); RED BLOOD COUNT 2.57 10^6/uL (4.20-5.40); RED CELL DISTRIBUTION WIDTH 14.9 % (12.0-15.0); WHITE BLOOD COUNT 10.1 x10^3/uL (4.8-10.8)
[2023-06-19 01:19] LABS: CALCIUM, IONIZED 1.13 mmol/L (1.15-1.33); VBG PH 7.456 (7.31-7.41)
[2023-06-19 01:20] LABS: PARTIAL THROMBOPLASTIN TIME 29.9 secs (24.9-33.3)
[2023-06-19 01:24] LABS: INR 1.2 (0.8-1.2); PT - PROTHROMBIN TIME 13.2 secs (9.9-12.6)
[2023-06-19 01:25] LABS: MAGNESIUM 1.6 mg/dL (1.7-2.3); PHOSPHORUS 2.7 mg/dL (2.5-5.0)
[2023-06-19 01:41] LABS: CALCIUM 8.9 mg/dL (8.5-10.3); CREATININE 0.8 mg/dL (0.6-1.3); POTASSIUM 3.6 mmol/L (3.5-4.5)
[2023-06-19 06:50] LABS: BASOPHILS # (AUTO) 0.1 10^3/uL (0.0-0.1); BASOPHILS % (AUTO) 0.7 %; EOSINOPHILS # (AUTO) 0.5 10^3/uL (0.0-0.7); EOSINOPHILS % (AUTO) 6.1 %; HCT - HEMATOCRIT 23.9 % (37.0-47.0); HGB - HEMOGLOBIN 7.7 g/dL (12.0-16.0); MEAN CORPUSCULAR HEMOGLOBIN 30.4 pg (27.0-31.0); MEAN CORPUSCULAR HGB CONC 32.2 g/dL (32.0-36.0); MEAN CORPUSCULAR VOLUME 94.5 fL (81.0-99.0); MEAN PLATELET VOLUME 9.7 fL (7.9-10.8); MONOCYTES # (AUTO) 0.6 10^3/uL (0.0-1.0); MONOCYTES % (AUTO) 7.7 %; NEUTROPHILS # (AUTO) 4.4 10^3/uL (1.5-6.6); NEUTROPHILS % (AUTO) 58.1 %; PLT - PLATELET COUNT 200 10^3/uL (130-450); RED BLOOD COUNT 2.53 10^6/uL (4.20-5.40); RED CELL DISTRIBUTION WIDTH 15.2 % (12.0-15.0); WHITE BLOOD COUNT 7.5 x10^3/uL (4.8-10.8)
[2023-06-19 07:21] LABS: ALBUMIN 3.1 g/dL (3.2-5.5); ALBUMIN/GLOBULIN RATIO 1.2 (1.0-2.2); BILIRUBIN,TOTAL 0.5 mg/dL (0.2-1.0); CREATININE 0.8 mg/dL (0.6-1.3); MAGNESIUM 1.6 mg/dL (1.7-2.3); POTASSIUM 3.9 mmol/L (3.5-4.5); TOTAL PROTEIN 5.6 g/dL (6.4-8.9)
--- NOTE | 2023-06-19 12:29 | PROVIDER PROGRESS NOTE ---
Assessment/Plan - Problem List (1) Acute upper GI bleed Assessment/Plan: secondary to bleeding ulcer improved received 1 PRBC, Hb improved to 7.7, recheck in pm, Hb stable at 8.2 -on PPI drip, for 48hr, will switch to oral Protonix 40mg bid afterward (2) Anemia due to blood loss, acute Assessment/Plan: improved, stable -give iv iron for further recovery (3) NSAID induced gastritis Assessment/Plan: avoid NSAID -on PPI - Current Meds Current Meds: Current Medications Generic Name Dose Route Start Last Admin Trade Name Ashq PRN Reason Stop Dose Admin Pantoprazole Sodium 80 mg/ 100 mls @ 10 mls/hr 06/18/23 15:00 06/19/23 03:09 Sodium Chloride IV 10 mls/hr .Q10H YANDY Administration Sodium Chloride 10 ml 06/18/23 17:00 06/19/23 08:59 Sodium Chloride Flush 0.9% 10 Ml Syringe IVP 10 ml 0100,0900,1700 YANDY Administration - Lab Result Fish Bone Diagrams: 06/19/23 15:20 06/19/23 06:35 - Additional Planning My Orders: My Active Orders 06/19/23 Lunch Full Liquid Diet [DIET] 06/19/23 12:25 MAGNESIUM SULFATE 2 GRAMS IV X1 Magnesium Sulfate 2 Gram [Magnesium Sulfate] 2 gm in 50 ml IV ONCE 06/19/23 12:26 Ferric Gluconate [Ferrlecit] 125 mg Sodium Chloride 0.9% 100Ml [Normal Saline 0.9% 100Ml] 100 ml IV ONCE 06/19/23 15:00 HEMOGLOBIN AND HEMATOCRIT [HEME] Timed 06/19/23 16:00 Sucralfate [Carafate] 1 gm PO 0700,1100,1600,2200 06/20/23 05:00 BMP - BASIC METABOLIC PANEL [CHEM] DAILYLAB CBC [CBC - COMP BLD CT W/AUTO DIFF] [HEME] DAILYLAB 06/21/23 05:00 BMP - BASIC METABOLIC PANEL [CHEM] DAILYLAB CBC [CBC - COMP BLD CT W/AUTO DIFF] [HEME] DAILYLAB 06/22/23 05:00 BMP - BASIC METABOLIC PANEL [CHEM] DAILYLAB CBC [CBC - COMP BLD CT W/AUTO DIFF] [HEME] DAILYLAB 06/23/23 05:00 BMP - BASIC METABOLIC PANEL [CHEM] DAILYLAB CBC [CBC - COMP BLD CT W/AUTO DIFF] [HEME] DAILYLAB 06/24/23 05:00 BMP - BASIC METABOLIC PANEL [CHEM] DAILYLAB CBC [CBC - COMP BLD CT W/AUTO DIFF] [HEME] DAILYLAB Additional Planning Notes: if Hb continue stable, may consider discharge patient to home in 1-2 days Subjective - Subjective Patient Reports: Feeling Better Nursing Reports: No Complaints (Daughter is at bedside) Objective Vital Signs: Vital Signs - 24 hr 06/18/23 06/18/23 06/18/23 14:44 14:51 15:12 Temperature 36.7 C 36.5 C Heart Rate 85 Heart Rate [ 81 93 Monitoring electrodes] Respiratory 18 16 16 Rate Blood Pressure 135/72 H Blood Pressure 128/68 139/79 H [Right Brachial artery] O2 Saturation 100 100 100 06/18/23 06/18/23 06/18/23 16:30 17:00 17:35 Temperature 36.7 C 36.6 C 36.3 C L Heart Rate Heart Rate [ 91 86 80 Monitoring electrodes] Respiratory 17 17 17 Rate Blood Pressure Blood Pressure 127/69 137/71 H 116/69 [Right Brachial artery] O2 Saturation 92 100 98 06/18/23 06/18/23 06/18/23 17:39 18:05 19:05 Temperature 36.3 C L 36.5 C 36.6 C Heart Rate Heart Rate [ 81 79 80 Monitoring electrodes] Respiratory 17 17 16 Rate Blood Pressure Blood Pressure 116/69 112/66 130/67 [Right Brachial artery] O2 Saturation 98 100 98 06/18/23 06/18/23 06/19/23 19:58 23:20 00:02 Temperature 36.6 C 36.6 C 36.7 C Heart Rate Heart Rate [ 88 84 81 Monitoring electrodes] Respiratory 20 16 16 Rate Blood Pressure Blood Pressure 121/67 114/61 139/72 H [Right Brachial artery] O2 Saturation 97 98 99 06/19/23 05:58 Temperature 36.5 C Heart Rate Heart Rate [ 76 Monitoring electrodes] Respiratory 16 Rate Blood Pressure Blood Pressure 102/59 L [Right Brachial artery] O2 Saturation 98 Oxygen O2 Source Room air I&O (Last 24 Hrs): Intake and Output Totals x24h 06/17/23 06/18/23 06/19/23 23:59 23:59 23:59 Intake Total 710 3376.667 Output Total 1700 Balance 710 4366.667 General: Alert, Oriented x3 HEENT: PERRLA, EOMI Neck: Supple Neuro: Alert, Non Focal Cardiovascular: No murmurs Respiratory: Chest non-tender, No respiratory distress Abdomen: Normal bowel sounds, No tenderness Extremities: No clubbing, No edema - Results Results: Laboratory Results WBC 7.5 x10^3/uL (4.8-10.8) 06/19/23 06:35 RBC 2.53 10^6/uL (4.20-5.40) L 06/19/23 06:35 Hgb 7.7 g/dL (12.0-16.0) L 06/19/23 06:35 Hct 23.9 % (37.0-47.0) L 06/19/23 06:35 MCV 94.5 fL (81.0-99.0) 06/19/23 06:35 MCH 30.4 pg (27.0-31.0) 06/19/23 06:35 MCHC 32.2 g/dL (32.0-36.0) 06/19/23 06:35 RDW 15.2 % (12.0-15.0) H 06/19/23 06:35 Plt Count 200 10^3/uL (130-450) 06/19/23 06:35 MPV 9.7 fL (7.9-10.8) 06/19/23 06:35 Neut # (Auto) 4.4 10^3/uL (1.5-6.6) 06/19/23 06:35 Lymph # (Auto) 2.0 10^3/uL (1.5-3.5) 06/19/23 06:35 Runnels # (Auto) 0.6 10^3/uL (0.0-1.0) 06/19/23 06:35 Eos # (Auto) 0.5 10^3/uL (0.0-0.7) 06/19/23 06:35 Baso # (Auto) 0.1 10^3/uL (0.0-0.1) 06/19/23 06:35 Absolute Nucleated RBC 0.00 x10^3/uL 06/19/23 06:35 Nucleated RBC % 0.0 /100WBC 06/19/23 06:35 PT 13.2 secs (9.9-12.6) H 06/19/23 00:58 INR 1.2 (0.8-1.2) 06/19/23 00:58 APTT 29.9 secs (24.9-33.3) 06/19/23 00:58 VBG pH 7.456 (7.31-7.41) H 06/19/23 00:58 Ionized Calcium 1.13 mmol/L (1.15-1.33) L 06/19/23 00:58 Sodium 138 mmol/L (135-145) 06/19/23 06:35 Potassium 3.9 mmol/L (3.5-4.5) 06/19/23 06:35 Chloride 110 mmol/L (101-111) 06/19/23 06:35 Carbon Dioxide 24 mmol/L (21-32) 06/19/23 06:35 Anion Gap 4.0 (6-13) L 06/19/23 06:35 BUN 30 mg/dL (6-20) H 06/19/23 06:35 Creatinine 0.8 mg/dL (0.6-1.3) 06/19/23 06:35 Estimated GFR (MDRD) 69 (>89) L 06/19/23 06:35 Glucose 92 mg/dL (74-104) 06/19/23 06:35 Calcium 9.0 mg/dL (8.5-10.3) 06/19/23 06:35 Phosphorus 2.7 mg/dL (2.5-5.0) 06/19/23 00:58 Magnesium 1.6 mg/dL (1.7-2.3) L 06/19/23 06:35 Total Bilirubin 0.5 mg/dL (0.2-1.0) 06/19/23 06:35 AST 18 IU/L (10-42) 06/19/23 06:35 ALT 17 IU/L (10-60) 06/19/23 06:35 Alkaline Phosphatase 40 IU/L (42-121) L 06/19/23 06:35 Total Protein 5.6 g/dL (6.4-8.9) L 06/19/23 06:35 Albumin 3.1 g/dL (3.2-5.5) L 06/19/23 06:35 Globulin 2.5 g/dL (2.1-4.2) 06/19/23 06:35 Albumin/Globulin Ratio 1.2 (1.0-2.2) 06/19/23 06:35 Lipase 33 U/L (11-82) 06/18/23 12:37 Blood Type A POSITIVE 06/18/23 12:37 Blood Type Recheck A POSITIVE 06/18/23 12:53 Antibody Screen NEGATIVE 06/18/23 12:37 Crossmatch IS Only See Detail 06/18/23 12:37 ABX Reporting Has patient been on IV antibiotics over the past 48 hours?: No Current Medications - Current Medications Current Medications: Active Medications Generic Name Dose Route Start Last Admin Trade Name Freq PRN Reason Stop Dose Admin Pantoprazole Sodium 80 mg/ 100 mls @ 10 mls/hr 06/18/23 15:00 06/19/23 12:51 Sodium Chloride IV 06/20/23 17:30 10 mls/hr .Q10H YANDY Administration Latanoprost 1 drops 06/19/23 21:00 06/19/23 21:18 Latanoprost 0.005% Ophth Drops EACHEYE 1 drops QPM YANDY Administration Pantoprazole Sodium 40 mg 06/20/23 21:00 Pantoprazole 40 Mg Tablet PO BID YANDY Sodium Chloride 10 ml 06/18/23 14:08 Sodium Chloride Flush 0.9% 10 Ml Syringe IVP PRN PRN NEEDED PER PROVIDER ORDERS Sodium Chloride 10 ml 06/18/23 17:00 06/19/23 19:17 Sodium Chloride Flush 0.9% 10 Ml Syringe IVP Not Given 0100,0900,1700 YANDY Sucralfate 1 gm 06/19/23 16:00 06/19/23 21:18 Sucralfate 1 Gm/10 Ml Udc PO 1 gm 0700,1100,1600,2200 YANDY Administration Benazepril HCl 20 mg PO DAILY 06/18/23 hydroCHLOROthiazide [Hydrodiuril] 12.5 mg PO DAILY 06/18/23 Latanoprost 0.005% Ophth Drops [Xalatan Ophth Drops] 1 drops EACHEYE HS 06/19/23
[2023-06-19] MEDS: MAGNESIUM SULFATE 2 GRAM 2 GM/50 ML BAG IV ONE (12:52)
[2023-06-19] MEDS: FERRIC GLUCONATE 125 MG in SODIUM CHLORIDE 0.9% 100ML 100 ML IV ONE (13:40)
--- NOTE | 2023-06-19 14:59 | PHARMACY PROGRESS NOTE ---
- Best Possible Medication History Admit Date and Time: 06/18/23 9572 Processed by: Pharmacy Medications reviewed in ED?: Yes Medication History completed: Yes Patient Interview: Completed Secondary Source(s): Insurance records As the person ultimately responsible for medication therapy, providers are able to order a medication from an existing home medication list in [facility] via the "Reconcile Routine" prior to Confirmation of that medication by legal support assistant. Such practice is discouraged except when the physician, in their clinical judgment, deems that a medical need exists for a medication without regard to previous use.
[2023-06-19 15:38] LABS: HCT - HEMATOCRIT 26.8 % (37.0-47.0); HGB - HEMOGLOBIN 8.5 g/dL (12.0-16.0)
[2023-06-19] MEDS: SUCRALFATE 1 GM/10 ML UDC PO SCH (16:20)
[2023-06-19] MEDS: LATANOPROST 0.005% OPHTH DROPS EACHEYE SCH (21:18)
[2023-06-20 04:52] LABS: BASOPHILS # (AUTO) 0.1 10^3/uL (0.0-0.1); BASOPHILS % (AUTO) 0.8 %; EOSINOPHILS # (AUTO) 0.7 10^3/uL (0.0-0.7); EOSINOPHILS % (AUTO) 8.1 %; HCT - HEMATOCRIT 22.3 % (37.0-47.0); HGB - HEMOGLOBIN 7.2 g/dL (12.0-16.0); LYMPHOCYTES # (AUTO) 1.9 10^3/uL (1.5-3.5); LYMPHOCYTES % (AUTO) 21.9 %; MEAN CORPUSCULAR HGB CONC 32.3 g/dL (32.0-36.0); MEAN CORPUSCULAR VOLUME 96.1 fL (81.0-99.0); MEAN PLATELET VOLUME 9.9 fL (7.9-10.8); MONOCYTES # (AUTO) 0.7 10^3/uL (0.0-1.0); MONOCYTES % (AUTO) 8.1 %; NEUTROPHILS # (AUTO) 5.1 10^3/uL (1.5-6.6); NEUTROPHILS % (AUTO) 60.5 %; PLT - PLATELET COUNT 187 10^3/uL (130-450); RED BLOOD COUNT 2.32 10^6/uL (4.20-5.40); RED CELL DISTRIBUTION WIDTH 15.2 % (12.0-15.0); WHITE BLOOD COUNT 8.5 x10^3/uL (4.8-10.8)
[2023-06-20 05:05] LABS: CALCIUM 8.8 mg/dL (8.5-10.3); CREATININE 0.8 mg/dL (0.6-1.3); POTASSIUM 3.9 mmol/L (3.5-4.5)
[2023-06-20] MEDS ORDERED: SODIUM CHLORIDE 0.9% 0 ML ONE (05:59)
[2023-06-20] MEDS ORDERED: SODIUM CHLORIDE 0.9% 500 ML IV ONE (06:09)
--- NOTE | 2023-06-20 07:50 | PROVIDER PROGRESS NOTE ---
Assessment/Plan - Problem List (1) Acute upper GI bleed Assessment/Plan: continue proceeding Hb7.2 (today am) from 8.5 (yesterday pm, after one unit PRBC) -give one unit PRBC -continue PPI for another 24hours before transation to oral -Hb recheck in pm showed 9.6 (2) Anemia due to blood loss, acute Assessment/Plan: improving, stable (3) NSAID induced gastritis Assessment/Plan: improving avoid NSAID - Current Meds Current Meds: Current Medications Generic Name Dose Route Start Last Admin Trade Name Freq PRN Reason Stop Dose Admin Pantoprazole Sodium 80 mg/ 100 mls @ 10 mls/hr 06/18/23 15:00 06/19/23 23:38 Sodium Chloride IV 06/20/23 17:30 10 mls/hr .Q10H YANDY Administration Latanoprost 1 drops 06/19/23 21:00 06/19/23 21:18 Latanoprost 0.005% Ophth Drops EACHEYE 1 drops QPM YANDY Administration Sodium Chloride 10 ml 06/18/23 17:00 06/19/23 23:38 Sodium Chloride Flush 0.9% 10 Ml Syringe IVP 10 ml 0100,0900,1700 YANDY Administration Sucralfate 1 gm 06/19/23 16:00 06/20/23 06:43 Sucralfate 1 Gm/10 Ml Udc PO 1 gm 0700,1100,1600,2200 YANDY Administration - Lab Result Fish Bone Diagrams: 06/20/23 15:07 06/20/23 04:36 - Additional Planning Condition/Complexity: Improved My Orders: My Active Orders 06/19/23 Lunch Full Liquid Diet [DIET] 06/19/23 16:00 Sucralfate [Carafate] 1 gm PO 0700,1100,1600,2200 06/19/23 21:00 Latanoprost 0.005% Ophth Drops [Xalatan Ophth Drops] 1 drops EACHEYE QPM 06/20/23 21:00 Pantoprazole [Protonix] 40 mg PO BID 06/21/23 05:00 BMP - BASIC METABOLIC PANEL [CHEM] DAILYLAB CBC [CBC - COMP BLD CT W/AUTO DIFF] [HEME] DAILYLAB 06/22/23 05:00 BMP - BASIC METABOLIC PANEL [CHEM] DAILYLAB CBC [CBC - COMP BLD CT W/AUTO DIFF] [HEME] DAILYLAB 06/23/23 05:00 BMP - BASIC METABOLIC PANEL [CHEM] DAILYLAB CBC [CBC - COMP BLD CT W/AUTO DIFF] [HEME] DAILYLAB 06/24/23 05:00 BMP - BASIC METABOLIC PANEL [CHEM] DAILYLAB CBC [CBC - COMP BLD CT W/AUTO DIFF] [HEME] DAILYLAB Time Spent: 15-30 minutes Additional Planning Notes: Plan for discharge to home tomorrow, if Hb stable Subjective - Subjective Patient Reports: Feeling Better (No discomfort, no more bowel movements) Objective Vital Signs: Vital Signs - 24 hr 06/19/23 06/19/23 06/19/23 12:37 17:47 23:50 Temperature 36.7 C 36.5 C 36.6 C Heart Rate [ 81 85 78 Brachial] Respiratory 16 16 18 Rate Blood Pressure 129/61 129/64 130/70 [Right Brachial artery] O2 Saturation 99 100 99 06/20/23 06/20/23 06/20/23 05:24 06:29 06:32 Temperature 36.7 C 36.5 C 36.5 C Heart Rate [ 75 82 82 Brachial] Respiratory 16 18 18 Rate Blood Pressure 134/73 H 134/72 H 134/72 H [Right Brachial artery] O2 Saturation 98 94 94 06/20/23 06/20/23 06:52 07:10 Temperature 36.7 C 36.7 C Heart Rate [ 80 86 Brachial] Respiratory 18 20 Rate Blood Pressure 140/73 H 148/74 H [Right Brachial artery] O2 Saturation 99 98 Oxygen O2 Source Room air I&O (Last 24 Hrs): Intake and Output Totals x24h 06/18/23 06/19/23 06/20/23 23:59 23:59 23:59 Intake Total 710 4223.667 0 Output Total 1700 Balance 710 2523.667 0 General: Alert, Oriented x3 HEENT: PERRLA, EOMI Neck: Supple Lymphatic: no adenopathy Neuro: Alert, Non Focal Cardiovascular: Regular rate Respiratory: Chest non-tender, Breath sounds nml Abdomen: Normal bowel sounds, Soft Extremities: No clubbing, No edema Skin: No rashes - Results Results: Laboratory Results WBC 8.5 x10^3/uL (4.8-10.8) 06/20/23 04:36 RBC 2.32 10^6/uL (4.20-5.40) L 06/20/23 04:36 Hgb 7.2 g/dL (12.0-16.0) L 06/20/23 04:36 Hct 22.3 % (37.0-47.0) L 06/20/23 04:36 MCV 96.1 fL (81.0-99.0) 06/20/23 04:36 MCH 31.0 pg (27.0-31.0) 06/20/23 04:36 MCHC 32.3 g/dL (32.0-36.0) 06/20/23 04:36 RDW 15.2 % (12.0-15.0) H 06/20/23 04:36 Plt Count 187 10^3/uL (130-450) 06/20/23 04:36 MPV 9.9 fL (7.9-10.8) 06/20/23 04:36 Neut # (Auto) 5.1 10^3/uL (1.5-6.6) 06/20/23 04:36 Lymph # (Auto) 1.9 10^3/uL (1.5-3.5) 06/20/23 04:36 Bath # (Auto) 0.7 10^3/uL (0.0-1.0) 06/20/23 04:36 Eos # (Auto) 0.7 10^3/uL (0.0-0.7) 06/20/23 04:36 Baso # (Auto) 0.1 10^3/uL (0.0-0.1) 06/20/23 04:36 Absolute Nucleated RBC 0.00 x10^3/uL 06/20/23 04:36 Nucleated RBC % 0.0 /100WBC 06/20/23 04:36 PT 13.2 secs (9.9-12.6) H 06/19/23 00:58 INR 1.2 (0.8-1.2) 06/19/23 00:58 APTT 29.9 secs (24.9-33.3) 06/19/23 00:58 VBG pH 7.456 (7.31-7.41) H 06/19/23 00:58 Ionized Calcium 1.13 mmol/L (1.15-1.33) L 06/19/23 00:58 Sodium 140 mmol/L (135-145) 06/20/23 04:36 Potassium 3.9 mmol/L (3.5-4.5) 06/20/23 04:36 Chloride 109 mmol/L (101-111) 06/20/23 04:36 Carbon Dioxide 26 mmol/L (21-32) 06/20/23 04:36 Anion Gap 5.0 (6-13) L 06/20/23 04:36 BUN 21 mg/dL (6-20) H 06/20/23 04:36 Creatinine 0.8 mg/dL (0.6-1.3) 06/20/23 04:36 Estimated GFR (MDRD) 69 (>89) L 06/20/23 04:36 Glucose 92 mg/dL (74-104) 06/20/23 04:36 Calcium 8.8 mg/dL (8.5-10.3) 06/20/23 04:36 Phosphorus 2.7 mg/dL (2.5-5.0) 06/19/23 00:58 Magnesium 1.6 mg/dL (1.7-2.3) L 06/19/23 06:35 Total Bilirubin 0.5 mg/dL (0.2-1.0) 06/19/23 06:35 AST 18 IU/L (10-42) 06/19/23 06:35 ALT 17 IU/L (10-60) 06/19/23 06:35 Alkaline Phosphatase 40 IU/L (42-121) L 06/19/23 06:35 Total Protein 5.6 g/dL (6.4-8.9) L 06/19/23 06:35 Albumin 3.1 g/dL (3.2-5.5) L 06/19/23 06:35 Globulin 2.5 g/dL (2.1-4.2) 06/19/23 06:35 Albumin/Globulin Ratio 1.2 (1.0-2.2) 06/19/23 06:35 Lipase 33 U/L (11-82) 06/18/23 12:37 Blood Type A POSITIVE 06/18/23 12:37 Blood Type Recheck A POSITIVE 03/04/24 12:53 Antibody Screen NEGATIVE 06/18/23 12:37 Crossmatch IS Only See Detail 06/18/23 12:37 ABX Reporting Has patient been on IV antibiotics over the past 48 hours?: No
[2023-06-20] MEDS: CALCIUM CARBONATE CHEW 500 MG TABLET PO SCH (13:12)
[2023-06-20 15:16] LABS: HCT - HEMATOCRIT 29.3 % (37.0-47.0); HGB - HEMOGLOBIN 9.6 g/dL (12.0-16.0)
[2023-06-20 16:06] LABS: FERRITIN 798.8 ng/mL (11.0-306.8)
[2023-06-20] MEDS ORDERED: PANTOPRAZOLE 40 MG TABLET PO SCH (21:00)
[2023-06-20] MEDS ORDERED: PANTOPRAZOLE 40 MG VIAL IVP SCH (21:00)
[2023-06-21 06:02] LABS: BASOPHILS # (AUTO) 0.1 10^3/uL (0.0-0.1); BASOPHILS % (AUTO) 0.6 %; EOSINOPHILS # (AUTO) 0.5 10^3/uL (0.0-0.7); EOSINOPHILS % (AUTO) 4.8 %; HCT - HEMATOCRIT 25.4 % (37.0-47.0); HGB - HEMOGLOBIN 8.2 g/dL (12.0-16.0); LYMPHOCYTES % (AUTO) 19.4 %; MEAN CORPUSCULAR HEMOGLOBIN 30.9 pg (27.0-31.0); MEAN CORPUSCULAR HGB CONC 32.3 g/dL (32.0-36.0); MEAN CORPUSCULAR VOLUME 95.8 fL (81.0-99.0); MONOCYTES # (AUTO) 0.9 10^3/uL (0.0-1.0); MONOCYTES % (AUTO) 8.7 %; NEUTROPHILS # (AUTO) 6.8 10^3/uL (1.5-6.6); NEUTROPHILS % (AUTO) 65.9 %; PLT - PLATELET COUNT 185 10^3/uL (130-450); RED BLOOD COUNT 2.65 10^6/uL (4.20-5.40); WHITE BLOOD COUNT 10.3 x10^3/uL (4.8-10.8)
[2023-06-21 06:15] LABS: CREATININE 0.8 mg/dL (0.6-1.3); POTASSIUM 4.1 mmol/L (3.5-4.5)
[2023-06-21] MEDS ORDERED: PANTOPRAZOLE 40 MG VIAL IVP SCH (09:00)
[2023-06-21] MEDS: PANTOPRAZOLE 40 MG TABLET PO SCH (09:14)
--- NOTE | 2023-06-21 14:18 | PROVIDER PROGRESS NOTE ---
Assessment/Plan - Problem List (1) Acute upper GI bleed Assessment/Plan: Appears stable 1 small black bowel movement reported A.m. blood draw hemoglobin 8.2, comparing to 9.6 from yesterday p.m. Rechecked today p.m. hemoglobin 8.6 Monitoring hemoglobin tomorrow in the morning (2) Anemia due to blood loss, acute Assessment/Plan: Improved, (3) NSAID induced gastritis Assessment/Plan: Continue to avoid NSAIDs Start oral Protonix 40 mg twice a day Advance diet as tolerated - Current Meds Current Meds: Current Medications Generic Name Dose Route Start Last Admin Trade Name Ashq PRN Reason Stop Dose Admin Calcium Carbonate/Glycine 500 mg 06/20/23 13:00 06/21/23 09:14 Calcium Carbonate Chew 500 Mg Tablet PO 500 mg BID YANDY Administration Latanoprost 1 drops 06/19/23 21:00 06/20/23 21:14 Latanoprost 0.005% Ophth Drops EACHEYE 1 drops QPM YANDY Administration Pantoprazole Sodium 40 mg 06/21/23 09:00 06/21/23 09:14 Pantoprazole 40 Mg Tablet PO 40 mg BID YANDY Administration Sodium Chloride 10 ml 06/18/23 17:00 06/21/23 09:14 Sodium Chloride Flush 0.9% 10 Ml Syringe IVP 10 ml 0100,0900,1700 YANDY Administration Sucralfate 1 gm 06/19/23 16:00 06/21/23 10:54 Sucralfate 1 Gm/10 Ml Udc PO 1 gm 0700,1100,1600,2200 YANDY Administration - Lab Result Fish Bone Diagrams: 06/21/23 14:57 06/21/23 05:48 - Additional Planning Condition/Complexity: Improved My Orders: My Active Orders 06/20/23 Dinner DIET [Soft (Low Fiber) Diet] [DIET] 06/21/23 09:00 Pantoprazole [Protonix] 40 mg PO BID 06/21/23 15:00 HEMOGLOBIN AND HEMATOCRIT [HEME] Timed 06/22/23 05:00 BMP - BASIC METABOLIC PANEL [CHEM] DAILYLAB CBC [CBC - COMP BLD CT W/AUTO DIFF] [HEME] DAILYLAB 06/23/23 05:00 BMP - BASIC METABOLIC PANEL [CHEM] DAILYLAB CBC [CBC - COMP BLD CT W/AUTO DIFF] [HEME] DAILYLAB 06/24/23 05:00 BMP - BASIC METABOLIC PANEL [CHEM] DAILYLAB CBC [CBC - COMP BLD CT W/AUTO DIFF] [HEME] DAILYLAB Plan Discussed with:: Patient Time Spent: 15-30 minutes Additional Planning Notes: If hemoglobin stable, plan to discharge patient home tomorrow Subjective - Subjective Patient Reports: Feeling Better ( Able to tolerate diet, Had 1 very small bowel movement with dark in color) Objective Vital Signs: Vital Signs - 24 hr 06/20/23 06/21/23 06/21/23 15:41 00:00 08:00 Temperature 36.6 C 36.7 C 36.7 C Heart Rate [ 84 89 83 Brachial] Respiratory 16 16 17 Rate Blood Pressure 143/79 H 118/63 137/72 H [Right Brachial artery] O2 Saturation 97 97 97 Oxygen O2 Source Room air I&O (Last 24 Hrs): Intake and Output Totals x24h 06/19/23 06/20/23 06/21/23 23:59 23:59 23:59 Intake Total 4223.667 1983 2222 Output Total 1700 Balance 2523.667 1983 2222 General: Alert, Oriented x3 HEENT: PERRLA, EOMI Neck: Supple Neuro: Alert, Non Focal Cardiovascular: Regular rate Respiratory: Chest non-tender Abdomen: Normal bowel sounds, No tenderness Extremities: No edema Skin: No rashes - Results Results: Laboratory Results WBC 10.3 x10^3/uL (4.8-10.8) 06/21/23 05:48 RBC 2.65 10^6/uL (4.20-5.40) L 06/21/23 05:48 Hgb 8.2 g/dL (12.0-16.0) L 06/21/23 05:48 Hct 25.4 % (37.0-47.0) L 06/21/23 05:48 MCV 95.8 fL (81.0-99.0) 06/21/23 05:48 MCH 30.9 pg (27.0-31.0) 06/21/23 05:48 MCHC 32.3 g/dL (32.0-36.0) 06/21/23 05:48 RDW 15.0 % (12.0-15.0) 06/21/23 05:48 Plt Count 185 10^3/uL (130-450) 06/21/23 05:48 MPV 10.0 fL (7.9-10.8) 06/21/23 05:48 Neut # (Auto) 6.8 10^3/uL (1.5-6.6) H 06/21/23 05:48 Lymph # (Auto) 2.0 10^3/uL (1.5-3.5) 06/21/23 05:48 [place] # (Auto) 0.9 10^3/uL (0.0-1.0) 06/21/23 05:48 Eos # (Auto) 0.5 10^3/uL (0.0-0.7) 06/21/23 05:48 Baso # (Auto) 0.1 10^3/uL (0.0-0.1) 06/21/23 05:48 Absolute Nucleated RBC 0.00 x10^3/uL 06/21/23 05:48 Nucleated RBC % 0.0 /100WBC 06/21/23 05:48 PT 13.2 secs (9.9-12.6) H 06/19/23 00:58 INR 1.2 (0.8-1.2) 06/19/23 00:58 APTT 29.9 secs (24.9-33.3) 06/19/23 00:58 VBG pH 7.456 (7.31-7.41) H 06/19/23 00:58 Ionized Calcium 1.13 mmol/L (1.15-1.33) L 06/19/23 00:58 Sodium 139 mmol/L (135-145) 06/21/23 05:48 Potassium 4.1 mmol/L (3.5-4.5) 06/21/23 05:48 Chloride 107 mmol/L (101-111) 06/21/23 05:48 Carbon Dioxide 28 mmol/L (21-32) 06/21/23 05:48 Anion Gap 4.0 (6-13) L 06/21/23 05:48 BUN 19 mg/dL (6-20) 06/21/23 05:48 Creatinine 0.8 mg/dL (0.6-1.3) 06/21/23 05:48 Estimated GFR (MDRD) 69 (>89) L 06/21/23 05:48 Glucose 105 mg/dL (74-104) H 06/21/23 05:48 Calcium 9.0 mg/dL (8.5-10.3) 06/21/23 05:48 Phosphorus 2.7 mg/dL (2.5-5.0) 06/19/23 00:58 Magnesium 1.8 mg/dL (1.7-2.3) 06/20/23 04:36 Iron 90 ug/dL (50-212) 06/20/23 15:07 TIBC 239 ug/dL (250-450) L 06/20/23 15:07 % Saturation 38 % (20-50) 06/20/23 15:07 Transferrin 171 mg/dL (203-362) L 06/20/23 15:07 Ferritin 798.8 ng/mL (11.0-306.8) H 06/20/23 15:07 Total Bilirubin 0.5 mg/dL (0.2-1.0) 06/19/23 06:35 AST 18 IU/L (10-42) 06/19/23 06:35 ALT 17 IU/L (10-60) 06/19/23 06:35 Alkaline Phosphatase 40 IU/L (42-121) L 06/19/23 06:35 Total Protein 5.6 g/dL (6.4-8.9) L 06/19/23 06:35 Albumin 3.1 g/dL (3.2-5.5) L 06/19/23 06:35 Globulin 2.5 g/dL (2.1-4.2) 06/19/23 06:35 Albumin/Globulin Ratio 1.2 (1.0-2.2) 06/19/23 06:35 Lipase 33 U/L (11-82) 06/18/23 12:37 Blood Type A POSITIVE 06/18/23 12:37 Blood Type Recheck A POSITIVE 06/18/23 12:53 Antibody Screen NEGATIVE 06/18/23 12:37 Crossmatch IS Only See Detail 06/18/23 12:37 ABX Reporting Has patient been on IV antibiotics over the past 48 hours?: No
[2023-06-21 15:05] LABS: HCT - HEMATOCRIT 27.2 % (37.0-47.0); HGB - HEMOGLOBIN 8.7 g/dL (12.0-16.0)
[2023-06-22 07:11] LABS: CALCIUM 9.1 mg/dL (8.5-10.3); CREATININE 0.9 mg/dL (0.6-1.3); POTASSIUM 3.9 mmol/L (3.5-4.5)
[2023-06-22 10:02] LABS: BASOPHILS # (AUTO) 0.1 10^3/uL (0.0-0.1); BASOPHILS % (AUTO) 0.6 %; EOSINOPHILS # (AUTO) 0.4 10^3/uL (0.0-0.7); EOSINOPHILS % (AUTO) 5.2 %; HCT - HEMATOCRIT 24.5 % (37.0-47.0); HGB - HEMOGLOBIN 7.7 g/dL (12.0-16.0); LYMPHOCYTES # (AUTO) 1.6 10^3/uL (1.5-3.5); LYMPHOCYTES % (AUTO) 19.1 %; MEAN CORPUSCULAR HEMOGLOBIN 31.2 pg (27.0-31.0); MEAN CORPUSCULAR HGB CONC 31.4 g/dL (32.0-36.0); MEAN CORPUSCULAR VOLUME 99.2 fL (81.0-99.0); MEAN PLATELET VOLUME 10.8 fL (7.9-10.8); MONOCYTES # (AUTO) 0.9 10^3/uL (0.0-1.0); MONOCYTES % (AUTO) 10.4 %; NEUTROPHILS # (AUTO) 5.4 10^3/uL (1.5-6.6); NEUTROPHILS % (AUTO) 64.2 %; PLT - PLATELET COUNT 188 10^3/uL (130-450); RED BLOOD COUNT 2.47 10^6/uL (4.20-5.40); WHITE BLOOD COUNT 8.5 x10^3/uL (4.8-10.8)
[2023-06-22 15:24] VITALS: BP 131/70; O2SAT 98
[2023-06-22 15:28] LABS: HCT - HEMATOCRIT 25.7 % (37.0-47.0); HGB - HEMOGLOBIN 8.3 g/dL (12.0-16.0)
--- NOTE | 2023-06-22 16:01 | Discharge Plan ---
Discharge Plan Problem Reviewed?: Yes Disposition: Home, Self Care Condition: Stable Prescriptions: Sucralfate [Carafate] 1 gm PO 0700,1100,1600,2200 14 Days #56 ea Pantoprazole [Protonix] 40 mg PO BID 30 Days #60 tab Calcium Carbonate [Tums (Calcium Carbonate 500mg)] 500 mg PO BID 30 Days #60 tab Diet: Soft Activity Restrictions: Activity as Tolerated Shower Restrictions: No Driving Restrictions: No Weight Bearing: Full Weight Instruction Topics: Bleeding Gastrointestinal, Gastric Ulcer Health Concerns: You have gastric ulcer, may be induced by the NSAIDs use. You received 2 units of PRBC transfusion, 1 dose of IV iron during hospital stay. You were on Protonix drip for 72 hours Please avoid aspirin, ibuprofen, naproxen or other nonsteroid anti-inflammatory drugs for 12 weeks Continue with Protonix 40 mg twice a day for at least 8 weeks. Please follow-up with PCP for further instruction Plan of Treatment: Continue Protonix 40 mg twice a day Continue Carafate for 14 days Your calcium level was low, please take Tums to improve calcium level Follow-up with your PCP regarding future iron use Care Goals: Regaining baseline functional status Anemia gradually improved over time Assessment: Medically stable for discharge to home No Smoking: If you smoke, Please STOP! Call for help.
--- NOTE | 2023-06-22 16:10 | DISCHARGE SUMMARY ---
Discharge Summary Admit Date: 06/18/23 Discharge Date: 06/22/23 Discharging Provider: Mehran Bass Code Status: Attempt Resuscitation Condition at Discharge: Stable Discharge Disposition: 01 Home, Self Care - DIAGNOSES Admission Diagnoses: GI bleed Discharge Diagnoses with Status of Each Condition: Acute anemia, secondary to upper GI bleed from Gastric ulcer, related to NSAID use Stable, improved - HPI History of Present Illness: A 77yo F with recent left hip surgery, presented to ED after a large bloody bowel movement, she had a syncope episode at the time. Patient had hip surgery at the end , she has been taking celebrakc for pain, she is not taking them with food. In the ED, her vss, lab showed Hb 7.2, while her baseline was 11. Patient is admitted for further EGD - HOSPITAL COURSE Hospital Course: During hospital stay, patient was started with PPI drip, EGD performed promptly by surgical team after patient's admission a gastric ulcer with blood clot noted. Patient was received two units of PRBC, Hb improved to 8.2, patient also was given iv iron one dose for his anemia. Protonic drip was discontinued for 72 hours, transation to oral protonix. No further bleeding noted. Patient is discharge to home. at least 8 weeks oral prontonix, follow up with GI or surgery for repeat EGD to check the healing - ALLERGIES Allergies/Adverse Reactions: Allergies Allergy/AdvReac Type Severity Reaction Status Date / Time oxycodone AdvReac Anxiety Verified 06/18/23 11:19 - MEDICATIONS Home Medications: Ambulatory Orders Medication Instructions Recorded Confirmed Benazepril HCl 20 mg PO DAILY 06/18/23 06/19/23 hydroCHLOROthiazide [Hydrodiuril] 12.5 mg PO DAILY 06/18/23 06/19/23 Latanoprost 0.005% Ophth Drops 1 drops EACHEYE HS 06/19/23 06/19/23 [Xalatan Ophth Drops] Calcium Carbonate [Tums (Calcium 500 mg PO BID 30 Days #60 tab 06/22/23 Carbonate 500mg)] Pantoprazole [Protonix] 40 mg PO BID 30 Days #60 tab 06/22/23 Sucralfate [Carafate] 1 gm PO 0700,1100,1600,2200 14 06/22/23 Days #56 ea - PHYSICAL EXAM AT DISCHARGE General Appearance: positive: No acute distress Eyes Bilateral: positive: Normal inspection ENT: positive: ENT inspection nml Neck: positive: Nml inspection Respiratory: positive: Chest non-tender, No respiratory distress Cardiovascular: positive: Regular rate & rhythm Peripheral Pulses: positive: 2+ Abdomen: positive: Non-tender, No organomegaly, Nml bowel sounds Skin: positive: Color nml, Pallor - LABS Result Diagrams: 06/22/23 15:05 06/22/23 06:25 - SEPSIS Current Stage of Sepsis: Ruled out - TIME SPENT Time Spent in Discharge (Minutes): 55
== END 2023-06-22 17:14 | disposition home or self-care (01) | DRG 378 ==
LOC: EDUNIT# → ED 11:06 → SUPCPDRO 11:06 → SDS 15:34 → MS2 16:49
PROVIDERS: ADMIT Internal Medicine; ATTEND Internal Medicine
PROC: 0W3P8ZZ Control Bleeding in Gastrointestinal Tract, Via Natural or Artificial Opening Endoscopic (ICD-10-PCS; principal; 2023-06-18 15:30)
DX: K25.4 Chronic or unspecified gastric ulcer with hemorrhage (principal); D62 Acute posthemorrhagic anemia; K29.60 Other gastritis without bleeding; T39.395A Adverse effect of other nonsteroidal anti-inflammatory drugs [NSAID], initial encounter; I95.9 Hypotension, unspecified; R55 Syncope and collapse; Z96.642 Presence of left artificial hip joint
CPT/HCPCS: 36415; 36430; 80048; 80053; 82272; 82330; 82728; 83540; 83690; 83735; 84100; 84466; 85014; 85018; 85025; 85610; 85730; 86850; 86900; 86901; 86920; 96374; 99285; A9270; J2916; P9016

== ENCOUNTER 2023-06-28 12:04 | Outpatient (CLI) | payer MEDICARE ==
[2023-06-28 12:19] LABS: BASOPHILS # (AUTO) 0.1 10^3/uL (0.0-0.1); EOSINOPHILS # (AUTO) 0.3 10^3/uL (0.0-0.7); EOSINOPHILS % (AUTO) 3.5 %; HCT - HEMATOCRIT 27.7 % (37.0-47.0); HGB - HEMOGLOBIN 8.6 g/dL (12.0-16.0); LYMPHOCYTES # (AUTO) 1.4 10^3/uL (1.5-3.5); LYMPHOCYTES % (AUTO) 18.5 %; MEAN CORPUSCULAR HEMOGLOBIN 30.6 pg (27.0-31.0); MEAN CORPUSCULAR VOLUME 98.6 fL (81.0-99.0); MEAN PLATELET VOLUME 9.8 fL (7.9-10.8); MONOCYTES # (AUTO) 0.6 10^3/uL (0.0-1.0); MONOCYTES % (AUTO) 7.8 %; NEUTROPHILS # (AUTO) 5.3 10^3/uL (1.5-6.6); NEUTROPHILS % (AUTO) 68.8 %; PLT - PLATELET COUNT 380 10^3/uL (130-450); RED BLOOD COUNT 2.81 10^6/uL (4.20-5.40); RED CELL DISTRIBUTION WIDTH 14.1 % (12.0-15.0); WHITE BLOOD COUNT 7.7 x10^3/uL (4.8-10.8)
[2023-06-28 12:50] LABS: FERRITIN 380.3 ng/mL (11.0-306.8)
== END 2023-06-28 12:05 | disposition home or self-care (01) ==
LOC: LAB 12:04
PROVIDERS: ATTEND Internal Medicine
DX: D64.9 Anemia, unspecified (principal); K27.4 Chronic or unspecified peptic ulcer, site unspecified, with hemorrhage
CPT/HCPCS: 36415; 82728; 83540; 84466; 85025

== ENCOUNTER 2023-12-15 12:51 | Outpatient (CLI) | payer MEDICARE | END 2023-12-15 12:52 | disposition home or self-care (01) | LOC: DI 12:51 | PROVIDERS: ATTEND Internal Medicine | DX: I48.91 Unspecified atrial fibrillation (principal); I27.20 Pulmonary hypertension, unspecified; I08.0 Rheumatic disorders of both mitral and aortic valves | CPT/HCPCS: 93307 ==

== ENCOUNTER 2023-12-18 12:38 | Outpatient (CLI) | payer MEDICARE ==
--- NOTE | 2023-12-19 11:35 | Mammography Report ---
BILATERAL DIGITAL SCREENING MAMMOGRAM 3D/2D: 12/18/2023 CLINICAL: Routine screening. Comparison is made to exams dated: 11/14/2022 mammogram, 12/02/2021 mammogram, 08/19/2020 mammogram, and 01/25/2017 mammogram - Located within [facility]. Both breasts are heterogeneously dense, which may obscure small masses (category c / 51-75% glandular tissue). No significant masses, calcifications, or other findings are seen in either breast. There has been no significant interval change. IMPRESSION: NEGATIVE There is no mammographic evidence of malignancy. A 1 year screening mammogram is recommended. Based on the Tyrer Cuzick model (a risk assessment model) the patient's lifetime risk is 2.4% and her 10 year risk is 0.0%. According to the ACR, ACS, and NCCN guidelines, an annual breast MRI exam chi g with mammogram is recommended if the patient's lifetime risk is 20% or greater. This exam was interpreted at Station ID: [id number]. NOTE: For mammograms, a report in lay terms will be sent to the patient. Approximately 15% of breast malignancies will not be visualized mammographically. In the management of a palpable breast mass, a negative mammogram must not discourage biopsy of a clinically suspicious lesion. Electronically Signed By: Jorge [email or web address]:12/18/2023 13:35:37 letter sent: No_Letter ACR BI-RADS Category 1: Negative 3341F PARENCHYMAL PATTERN: (D) - The breast(s) demonstrate(s) heterogeneously dense fibroglandular ben gusman. BI-RADS CATEGORY: (1) - 1 RECOMMENDATION: (ANNUAL) - Recommend routine annual screening mammography. [id number] 1 year screening LATERALITY: (B)
== END 2023-12-18 12:39 | disposition home or self-care (01) ==
LOC: DI 12:38
DX: Z12.31 Encounter for screening mammogram for malignant neoplasm of breast (principal); R92.333 Mammographic heterogeneous density, bilateral breasts

== ENCOUNTER 2024-01-09 12:29 | Outpatient (CLI) | payer MEDICARE ==
[2024-01-09 12:42] LABS: BASOPHILS # (AUTO) 0.1 10^3/uL (0.0-0.1); EOSINOPHILS # (AUTO) 0.2 10^3/uL (0.0-0.7); EOSINOPHILS % (AUTO) 2.1 %; HCT - HEMATOCRIT 43.5 % (37.0-47.0); HGB - HEMOGLOBIN 13.6 g/dL (12.0-16.0); LYMPHOCYTES # (AUTO) 2.3 10^3/uL (1.5-3.5); LYMPHOCYTES % (AUTO) 28.1 %; MEAN CORPUSCULAR HEMOGLOBIN 29.1 pg (27.0-31.0); MEAN CORPUSCULAR HGB CONC 31.3 g/dL (32.0-36.0); MEAN CORPUSCULAR VOLUME 92.9 fL (81.0-99.0); MEAN PLATELET VOLUME 10.4 fL (7.9-10.8); MONOCYTES # (AUTO) 0.6 10^3/uL (0.0-1.0); NEUTROPHILS # (AUTO) 4.9 10^3/uL (1.5-6.6); NEUTROPHILS % (AUTO) 60.7 %; PLT - PLATELET COUNT 250 10^3/uL (130-450); RED BLOOD COUNT 4.68 10^6/uL (4.20-5.40); RED CELL DISTRIBUTION WIDTH 14.3 % (12.0-15.0)
[2024-01-09 13:03] LABS: POTASSIUM 3.9 mmol/L (3.5-4.5)
== END 2024-01-09 12:30 | disposition home or self-care (01) ==
LOC: LAB 12:29
PROVIDERS: ATTEND Internal Medicine Cardiovascular Disease
DX: I34.1 Nonrheumatic mitral (valve) prolapse (principal)
CPT/HCPCS: 36415; 82565; 84132; 85025